=== PATIENT | female | born 1950 | race Caucasian/White ===

== ENCOUNTER 2016-05-10 07:24 | Emergency (ER) | payer MEDICARE, OTHER ==
[2016-05-10] MEDS ORDERED: methylPREDNISolone INJ 125 MG/2 ML VIAL (J2930) As Ordered ONE (07:53)
[2016-05-10] MEDS ORDERED: ASPIRIN 81 MG CHEW TABLET As Ordered ONE (07:53)
[2016-05-10 07:57] LABS: BASO % 0.3 % (0.0-1.0); EOS # 0.1 K/mm3 (0.0-0.50); LARGE UNSTAINED CELL # 0.1 K/mm3 (0.0-0.4); LARGE UNSTAINED CELL % 1.3 % (0.0-4.0); LYMPH # 0.9 K/mm3 (1.5-4.5); LYMPH % 12.2 % (24.0-44.0); MEAN CORPUSCULAR HEMOGLOBIN 31.3 pg (27.0-33.0); MEAN CORPUSCULAR HGB CONC 35.4 g/dl (32.0-36.5); MEAN CORPUSCULAR VOLUME 88.4 fl (80.0-96.0); MONO # 0.4 K/mm3 (0.0-0.8); MONO % 6.1 % (0.0-5.0); NEUTROPHILS # 5.4 K/mm3 (1.8-7.7); NEUTROPHILS % 78.2 % (36.0-66.0); PLATELET COUNT, AUTOMATED 244 k/mm3 (150-450); RED CELL DISTRIBUTION WIDTH 14.8 % (11.5-14.5); WHITE BLOOD COUNT 6.9 K/mm3 (4.0-10.0)
[2016-05-10 08:06] LABS: INR 0.89
[2016-05-10 08:19] LABS: ANION GAP 12 MEQ/L (8-16); BLOOD UREA NITROGEN 4 MG/DL (7-18); CALCIUM LEVEL 8.9 MG/DL (8.8-10.2); CARBON DIOXIDE LEVEL 25 MEQ/L (21-32); CHLORIDE LEVEL 92 MEQ/L (98-107); CREATININE FOR GFR 1.11 MG/DL (0.55-1.02); GLOMERULAR FILTRATION RATE 52.2 (>45); GLUCOSE, FASTING 131 MG/DL (80-110); POTASSIUM SERUM 3.6 MEQ/L (3.5-5.1); SODIUM LEVEL 129 MEQ/L (136-145)
--- NOTE | 2016-05-10 08:26 | REP ---
Clinical: Acute cough . Comparison: 05/08/2011 . Findings: The mediastinum and cardiac silhouette are stable and within normal limits for portable technique. The lung galindo are clear without acute consolidation, effusion, or pneumothorax. Skeletal structures are intact. Impression: Normal portable chest x-ray Signed by Yazan Dennis MD 05/10/2016 08:18 A
--- NOTE | 2016-05-10 10:11 | EDDOCDS ---
Nurse's Notes [facility] Name: Argenis García Age: 65 yrs Sex: Female : 1950 Arrival Date: 05/10/2016 Time: 07:24 Bed 15 Private MD: Diagnosis: Chronic obstructive pulmonary disease with (acute) exacerbation;Hypo-osmolality and hyponatremia Presentation: 05/10 07:29 Presenting complaint: Patient states: chest congestion for 3 weeks. reports productive kr3 cough. congestion worse for last 3 days. Vomiting and diarrhea for 3 weeks. Adult Sepsis Screening: The patient does not have new or worsening altered mentation. Patient's respiratory rate is less than 22. Systolic blood pressure is greater than 100. Patient has a qSOFA score of 0- Negative Sepsis Screen. Suicide/Homicide risk assessment- the patient denies having any suicidal and/or homicidal ideations and does not present with any other emotional, behavioral or mental health complaints. Status: Patient is not a access service representative or dependent. Transition of care: patient was not received from another setting of care. 07:29 Acuity: OMAR Level 3 kr3 07:29 Method Of Arrival: Walkin/Carried/Asstd kr3 Triage Assessment: 07:32 General: Appears in no apparent distress, comfortable, Behavior is appropriate for age, kr3 cooperative. Pain: Location: chest Quality of pain is described as aching, Aggravated by increased activity, repositioning. Neurological: Level of Consciousness is awake, alert. Respiratory: Respiratory effort is even, unlabored, Reports shortness of breath on exertion pain with cough pain with movement pain with respiration. Respiratory: Reports cough that is productive. GI: Reports nausea, vomiting. Derm: Skin is normal. Historical: - Allergies: Codeine Sulfatefeels funny; - Home Meds: 1. lisinopril-hydrochlorothiazide 20-12.5 mg oral tab once daily 2. Seroquel 50 mg Oral tab nightly 3. Xanax 0.5 mg oral tab 3 times per day 4. aspirin 325 mg Oral tab once daily 5. melatonin 10 mg Oral cap nightly 6. Albuterol Nebulizer (Last dose: 05/10/2016 06:30) 7. Albuterol Inhl as needed - PMHx: Panic Attacks; Hypertension; COPD; - PSHx: Hysterectomy; D & C; Lumpectomy- Right; Endoscopy, Upper; - Social history: Smoking status: Patient uses tobacco products, heavy tobacco smoker. No barriers to communication noted, The patient speaks fluent Kinyarwanda, Speaks appropriately for age. - Family history: Not pertinent. - : The pt / caregiver states he / she is not on anticoagulants. Home medication list is obtained from the patient. - Exposure Risk Screening:: None identified. Screenin:53 Screening information is obtained from the patient. Fall risk: No risks identified. ml6 Assistance ADL's: requires no assistance with activities of daily living. Abuse/DV Screen: The patient / caregiver reports he/she is: not in a situation that causes fear, pain or injury. Nutritional screening: No deficits noted. Advance Directives: Currently, there is no health care proxy. home support is adequate. Assessment: 07:52 General: Appears in no apparent distress, Behavior is appropriate for age, cooperative. ml6 Pain: Location: left lateral posterior chest Pain currently is 5 out of 10 on a pain scale. Pain does not radiate. Quality of pain is described as sharp, Pain began 2-3 days ago Is intermittent episodic lasting a few minutes Alleviated by rest. Cardiovascular: Capillary refill < 3 seconds is brisk in bilateral fingers toes Heart tones S1 S2 present Edema is absent. Pulses are all present. Rhythm is regular Chest pain is described as mild, quality is stabbing, is located in left anterior chest wall radiates Does not radiate. 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 GI: Bowel sounds present X 4 quads. Abd is soft and non tender X 4 quads. Reports nausea, vomiting, Denies cramping, diarrhea. 08:08 GI: Abdomen is obese, Bowel sounds present X 4 quads. Abd is soft and non tender. Derm: js13 Skin is pink, warm & dry. 08:42 General: Appears in no apparent distress, comfortable, Behavior is appropriate for age, js13 cooperative. Pain: Location: left lateral posterior chest Pain currently is 3 out of 10 on a pain scale. Pain does not radiate. Quality of pain is described as sharp, Pain began 2-3 days ago Is intermittent. Cardiovascular: Rhythm is regular Chest pain is described as mild. Respiratory: Airway is patent Respiratory effort is even, unlabored, Respiratory pattern is regular, symmetrical, Breath sounds with rhonchi. Derm: Skin is pink, warm & dry. 10:08 Adult Sepsis Screening: The patient does not have new or worsening altered mentation. js13 Patient's respiratory rate is less than 22. Systolic blood pressure is greater than 100. Patient has a qSOFA score of 0- Negative Sepsis Screen. General: Appears in no apparent distress, comfortable, Behavior is appropriate for age, cooperative. Pain: Denies pain. Neurological: Level of Consciousness is awake, alert. Cardiovascular: Chest pain is denied. Respiratory: No deficits noted. Airway is patent Respiratory effort is even, unlabored, Respiratory pattern is regular, symmetrical. Derm: Skin is pink, warm & dry. Vital Signs: 07:34 BP 173 / 82; Pulse 109; Resp 16; Temp 97.9(O); Pulse Ox 96% on R/A; Weight 68.04 kg kr3 (R); Height 5 ft. 1 in. (154.94 cm) (R); 08:26 BP 169 / 80 (auto/); js13 08:26 Pulse 102 MON; Resp 16; Pulse Ox 95% on R/A; js13 08:56 BP 155 / 78 (auto/); js13 08:56 Pulse 94 MON; Resp 16; Pulse Ox 96% on R/A; js13 09:26 BP 172 / 74 (auto/); js13 09:26 Pulse 104 MON; Resp 16; Pulse Ox 94% on R/A; js13 09:56 BP 178 / 72 (auto/); js13 09:56 Pulse 106 MON; Resp 16; Temp 98.0(O); Pulse Ox 96% on R/A; Pain 0/10; js13 07:34 Body Mass Index 28.34 (68.04 kg, 154.94 cm) 3 Vitals: 07:32 Log In Time: May 10, 2016 at 07:26. kr3 ED Course: 07:26 Patient visited by Navya Floyd Reg. hs2 07:26 Patient moved to Waiting hs2 07:30 Triage Initiated kr3 07:36 Myrtle Candelaria,RN is Primary Nurse. kr3 07:36 Patient moved to 15 kr3 07:37 Brenda Warner MD is Attending Physician. fg 07:37 Patient visited by Brenda Warner MD. fg 07:50 [facility] Payment Agreement was scanned into [employer] and attached to record. ks16 07:50 B-Type Natiuretic Peptide Sent. js13 07:50 Basic Metabolic Profile Sent. js13 07:50 CBC with Diff Sent. js13 07:50 Cardiac Injury Profile Sent. js13 07:51 Prothrombin Time Profile\E\INR Sent. js13 07:51 Troponin Sent. js13 07:51 Inserted peripheral IV: 18gauge IV in right antecubital area and blood collected. ml6 Patient tolerated the procedure well. Labs drawn. (by ED staff). Sent per order to lab. Labs/Blood culture drawn. 07:54 The patient / caregiver is instructed regarding the plan of care and ED course. ml6 07:54 satellite project site monitor on. Pulse ox on. NIBP on. ml6 08:08 No procedures done that require assistance. js13 08:09 Patient visited by Myrtle aCndelaria RN. js13 08:44 Patient visited by Myrtle Candelaria RN. js13 08:46 portable chest Returned. EDMS 09:47 Patient visited by Brenda Warner MD. fg 09:56 Discontinued IV lock intact, bleeding controlled, pressure dressing applied, No js13 redness/swelling at site. Administered Medications: 07:57 Drug: Aspirin 324 mg [aspirin 81 mg chewable tablet (4 tabs)] Route: PO; js13 07:57 Drug: Solu-MEDROL 125 mg [Solu-Medrol 500 mg intravenous solution (125 mg)] Route: IVP; js13 Site: right antecubital; 09:05 Drug: NS 0.9% 500 ml [sodium chloride 0.9 % intravenous solution] Route: IV; Rate: js13 bolus; Site: right antecubital; 10:10 Follow up: IV Status: Completed infusion; IV Intake: 500ml js13 Intake: 10:10 IV: 500.00ml; Total: 500.00ml. js13 Order Results: Lab Order: B-Type Natiuretic Peptide; SPEC'M 05/10/16 07:48 Test: BRAIN NATRIURETIC PEPTIDE; Value: 15.6; Range: <100; Units: PG/ML; Status: F Lab Order: Basic Metabolic Profile; SPEC'M 05/10/16 07:48 Test: GLUCOSE, FASTING; Value: 131; Range: 80-110; Abnormal: Above high normal; Units: MG/DL; Status: F Test: BLOOD UREA NITROGEN; Value: 4; Range: 7-18; Abnormal: Below low normal; Units: MG/DL; Status: F Test: CREATININE FOR GFR; Value: 1.11; Range: 0.55-1.02; Abnormal: Above high normal; Units: MG/DL; Status: F Test: GLOMERULAR FILTRATION RATE; Value: 52.2; Range: >45; Status: F Test: SODIUM LEVEL; Value: 129; Range: 136-145; Abnormal: Below low normal; Units: MEQ/L; Status: F Test: POTASSIUM SERUM; Value: 3.6; Range: 3.5-5.1; Units: MEQ/L; Status: F Test: CHLORIDE LEVEL; Value: 92; Range: 98-107; Abnormal: Below low normal; Units: MEQ/L; Status: F Test: CARBON DIOXIDE LEVEL; Value: 25; Range: 21-32; Units: MEQ/L; Status: F Test: ANION GAP; Value: 12; Range: 8-16; Units: MEQ/L; Status: F Test: CALCIUM LEVEL; Value: 8.9; Range: 8.8-10.2; Units: MG/DL; Status: F Test Note: ; Units are mL/min/1.73 m2 Chronic Kidney Disease Staging per NKF: Stage I & II GFR >=60 Normal to Mildly Decreased Stage III GFR 30-59 Moderately Decreased Stage IV GFR 15-29 Severely Decreased Stage V GFR <15 Very Little GFR Left ESRD GFR <15 on SENIOR SYSTEMS SOFTWARE ENGINEER Lab Order: CBC with Diff; SPEC'M 05/10/16 07:48 Test: WHITE BLOOD COUNT; Value: 6.9; Range: 4.0-10.0; Units: K/mm3; Status: F Test: RED BLOOD COUNT; Value: 4.28; Range: 4.00-5.40; Units: M/mm3; Status: F Test: HEMOGLOBIN; Value: 13.4; Range: 12.0-16.0; Units: g/dl; Status: F Test: HEMATOCRIT; Value: 37.9; Range: 36.0-47.0; Units: %; Status: F Test: MEAN CORPUSCULAR VOLUME; Value: 88.4; Range: 80.0-96.0; Units: fl; Status: F Test: MEAN CORPUSCULAR HEMOGLOBIN; Value: 31.3; Range: 27.0-33.0; Units: pg; Status: F Test: MEAN CORPUSCULAR HGB CONC; Value: 35.4; Range: 32.0-36.5; Units: g/dl; Status: F Test: RED CELL DISTRIBUTION WIDTH; Value: 14.8; Range: 11.5-14.5; Abnormal: Above high normal; Units: %; Status: F Test: PLATELET COUNT, AUTOMATED; Value: 244; Range: 150-450; Units: k/mm3; Status: F Test: NEUTROPHILS %; Value: 78.2; Range: 36.0-66.0; Abnormal: Above high normal; Units: %; Status: F Test: LYMPH %; Value: 12.2; Range: 24.0-44.0; Abnormal: Below low normal; Units: %; Status: F Test: MONO %; Value: 6.1; Range: 0.0-5.0; Abnormal: Above high normal; Units: %; Status: F Test: EOS %; Value: 2.0; Range: 0.0-3.0; Units: %; Status: F Test: BASO %; Value: 0.3; Range: 0.0-1.0; Units: %; Status: F Test: LARGE UNSTAINED CELL %; Value: 1.3; Range: 0.0-4.0; Units: %; Status: F Test: NEUTROPHILS #; Value: 5.4; Range: 1.8-7.7; Units: K/mm3; Status: F Test: LYMPH #; Value: 0.9; Range: 1.5-4.5; Abnormal: Below low normal; Units: K/mm3; Status: F Test: MONO #; Value: 0.4; Range: 0.0-0.8; Units: K/mm3; Status: F Test: EOS #; Value: 0.1; Range: 0.0-0.50; Units: K/mm3; Status: F Test: BASO #; Value: 0.0; Range: 0.0-0.2; Units: K/mm3; Status: F Test: LARGE UNSTAINED CELL #; Value: 0.1; Range: 0.0-0.4; Units: K/mm3; Status: F Lab Order: Cardiac Injury Profile; [facility] 05/10/16 07:48 Test: CPK CREATINE PHOSPHOKINASE; Value: 163; Range: 26-192; Units: U/L; Status: F Test: CK-MB VALUE MASS; Value: 2.8; Range: 0.0-3.6; Units: NG/ML; Status: F Test: MB/CK RELATIVE INDEX; Value: 1.71; Range: < OR =4; Status: F Test Note: ; DIAGNOSIS CRITERIA MMB ng/ml Relative Index (RI) NON-AMI < or = 5 N/A CALVERT ZONE > 5 < or = 4 AMI > 5 > 4 Lab Order: Prothrombin Time Profile\E\INR; [facility]05/[facility]16 07:48 Test: PROTHROMBIN TIME; Value: 12.1; Range: 12.3-14.5; Abnormal: Below low normal; Units: SECONDS; Status: F Test: INR; Value: 0.89; Status: F Test Note: ; THERAPUTIC HUMAN INR VALUES INDICATIONS NORMAL RANGES PROPHYLAXIS/TREATMENT OF: VENOUS THROMBOSIS 2.0-3.0 PULMONARY EMBOLISM 2.0-3.0 PREVENTION OF SYSTEMIC EMBOLISM FROM: TISSUE HEART VALVES 2.0-3.0 ACUTE MYOCARDIAL INFARCTION 2.0-3.0 VALVULAR HEART DISEASE 2.0-3.0 ATRIAL FIBRILLATION 2.0-3.0 MECHANICAL VALVES(HIGH RISK) 2.5-3.5 RECURRENT MYOCARDIAL INFARCTION 2.5-3.5 Lab Order: Troponin; 05/10/16 07:48 Test: TROPONIN I; Value: < 0.02; Range: < 0.10; Units: NG/ML; Status: F Test Note: ; Troponin I Reference Interval for [employer] LOCI: 99th Percentile= 0.00-0.045 ng/ml Risk Stratification: <= 0.10 ng/ml Decreased Risk for Adverse Clinical Events. 0.10-1.50 ng/ml Increased Risk for Adverse Clinical Events. Evaluation of additional criterion and/or repeat testing in 2-6 hours is suggested to rule out myocardial damage. >= 1.50 ng/ml Indicative of Myocardial Injury. Radiology Order: portable chest Test: portable chest REASON FOR EXAMINATION: Cough; Clinical: Acute cough .; ; Comparison: 05/08/2011 .; ; Findings:; The mediastinum and cardiac silhouette are stable and within normal limits for; portable technique. The lung galindo are clear without acute consolidation,; effusion, or pneumothorax. Skeletal structures are intact.; ; Impression:; Normal portable chest x-ray; ; ; Signed by; Yazan Dennis MD 05/10/2016 08:18 A; Outcome: 09:49 Discharge ordered by Provider. 09:56 Discharge Assessment: Patient awake, alert and oriented x 3. No cognitive and/or js13 functional deficits noted. Patient verbalized understanding of disposition instructions. patient administered narcotics - no. The following High Risk Discharge criteria are identified: None. Discharged to home ambulatory. Condition: stable. Discharge instructions given to patient, Instructed on discharge instructions, follow up and referral plans. medication usage, Demonstrated understanding of instructions, medications, Pt was receptive of discharge instructions/ teaching. Prescriptions given X 1. No special radiology studies were completed. Property :Personal belongings accompany Pt. 10:10 Patient left the ED. js13 Signatures: Dispatcher [employer] EDMS Cynthia Godoy,RN RN kr3 Brien Ruiz, RN RN ml6 Myrtle CandelariaRN RN js13 Brenda Warner MD MD fg Sorenson, Kimberly, Reg Reg ks16 Navya Floyd, Reg Reg hs2 MTDD
--- NOTE | 2016-05-10 10:11 | EDDOCDS ---
Physician Documentation [facility] Name: Argenis García Age: 65 yrs Sex: Female : 1950 Arrival Date: 05/10/2016 Time: 07:24 Bed 15 Private MD: Disposition: 05/10/16 09:49 Discharged to Home/Self Care. Impression: Chronic obstructive pulmonary disease with (acute) exacerbation, Hypo-osmolality and hyponatremia. - Condition is Stable. - Discharge Instructions: Chronic Obstructive Pulmonary Disease, Hyponatremia. - Prescriptions for Lisinopril 20 mg Oral Tablet - take 1 tablet by ORAL route once daily; 7 tablet. - Medication Reconciliation, Local Pharmacy Hours form. - Follow up: Private Physician; When: Call to arrange an appointment; Reason: Recheck today's complaints. - Problem is new. - Symptoms have improved. - Notes: You have been evaluated for your COPD exacerbation and your low sodium. We will change your antibiotics and would like you to follow up with your PCP next week to check your sodium level. We have removed the HCTZ portion of your HCTZ/Lisinopril medication to see if the medication is causing you to have a lower level of sodium. Theadmitting physician said you did not need to be admitted foryour low sodium level. As discussed your low sodium may be dilutional, meaning the amount of free fluid is diluting your sodium. Please return to the ED if your symptoms do not improve. I hope you feel better soon. Historical: - Allergies: Codeine Sulfatefeels funny; - Home Meds: 1. lisinopril-hydrochlorothiazide 20-12.5 mg oral tab once daily 2. Seroquel 50 mg Oral tab nightly 3. Xanax 0.5 mg oral tab 3 times per day 4. aspirin 325 mg Oral tab once daily 5. melatonin 10 mg Oral cap nightly 6. Albuterol Nebulizer (Last dose: 05/10/2016 06:30) 7. Albuterol Inhl as needed - PMHx: Panic Attacks; Hypertension; COPD; - PSHx: Hysterectomy; D & C; Lumpectomy- Right; Endoscopy, Upper; - Social history: Smoking status: Patient uses tobacco products, heavy tobacco smoker. No barriers to communication noted, The patient speaks fluent Upper Sorbian, Speaks appropriately for age. - Family history: Not pertinent. - : The pt / caregiver states he / she is not on anticoagulants. Home medication list is obtained from the patient. - Exposure Risk Screening:: None identified. Vital Signs: 05/10 07:34 BP 173 / 82; Pulse 109; Resp 16; Temp 97.9(O); Pulse Ox 96% on R/A; Weight 68.04 kg / kr3 150 lbs (R); Height 5 ft. 1 in. (154.94 cm) (R); 08:26 BP 169 / 80 (auto/); js13 08:26 Pulse 102 MON; Resp 16; Pulse Ox 95% on R/A; js13 08:56 BP 155 / 78 (auto/); js13 08:56 Pulse 94 MON; Resp 16; Pulse Ox 96% on R/A; js13 09:26 BP 172 / 74 (auto/); js13 09:26 Pulse 104 MON; Resp 16; Pulse Ox 94% on R/A; js13 09:56 BP 178 / 72 (auto/); js13 09:56 Pulse 106 MON; Resp 16; Temp 98.0(O); Pulse Ox 96% on R/A; Pain 0/10; js13 07:34 Body Mass Index 28.34 (68.04 kg, 154.94 cm) kr3 MDM: 07:39 ECG WITH READING ER PHYS+CARDIAG ordered. EDMS 07:48 Aspirin Chewable Tablet 324 mg PO once ordered. fg 07:48 Convex Grinder Operator/Pulse Ox/q 30 min VS ordered. fg 07:48 IV Saline Lock ordered. fg 07:48 Rhythm Strip to chart ordered. fg 07:48 Undress patient appropriately for examination ordered. fg 07:48 Solu-MEDROL 125 mg IVP once ordered. fg 07:49 B-Type Natiuretic Peptide Ordered. EDMS 07:49 Financial registration complete. [email or web address] 07:49 Basic Metabolic Profile Ordered. EDMS 07:49 CBC with Diff Ordered. EDMS 07:49 Cardiac Injury Profile Ordered. EDMS 07:49 Prothrombin Time Profile\E\INR Ordered. EDMS 07:50 Troponin Ordered. EDMS 07:50 [facility] [place] [facility] Payment Agreement was scanned into [employer] and attached to record. ks16 07:50 portable chest Ordered. EDMS 08:54 NS 0.9% 500 ml IV at bolus once ordered. fg Administered Medications: 07:57 Drug: Aspirin 324 mg [aspirin 81 mg chewable tablet (4 tabs)] Route: PO; 07:57 Drug: Solu-MEDROL 125 mg [Solu-Medrol 500 mg intravenous solution (125 mg)] Route: IVP; js13 Site: right antecubital; 09:05 Drug: NS 0.9% 500 ml [sodium chloride 0.9 % intravenous solution] Route: IV; Rate: js13 bolus; Site: right antecubital; 10:10 Follow up: IV Status: Completed infusion; IV Intake: 500ml 13 Signatures: Dispatcher [employer] EDCynthia PenaRN RN kr3 Myrtle CandelariaRN RN js13 Brenda Warner MD MD fg Sorenson, Kimberly, Reg Reg ks16 The chart was reviewed and I authenticate all verbal orders and agree with the evaluation and treatment provided.Attachments: 07:50 [facility] Payment Agreement [email or web address] MTDD
--- NOTE | 2016-05-10 19:43 | ECGEPIP ---
Stationary ECG Study [facility] - ED Test Date: 2016-05-10 Pat Name: YANIRA KRISHNAN Department: Room: - Gender: F Manufacturing Plant Manager: bhanu : 1950 Requested By: CHEPE Renner Order Number: [id number] Reading MD: Kathy Glover Measurements Intervals Wilber Rate: 110 P: 55 NH: 160 QRS: 22 QRSD: 63 T: 64 QT: 304 QTc: 412 Interpretive Statements SINUS TACHYCARDIA LOW QRS VOLTAGE IN PRECORDIAL LEADS ABNORMAL RHYTHM ECG NSTTW ABNORMALITY Electronically Signed On 05-10-2016 19:43:05 EST by Kathy Glover
--- NOTE | 2016-05-12 11:11 | EDDOCDS ---
Nurse's Notes [facility] Name: Argenis García Age: 65 yrs Sex: Female : 1950 Arrival Date: 05/10/2016 Time: 07:24 Bed 15 Private MD: Diagnosis: Chronic obstructive pulmonary disease with (acute) exacerbation;Hypo-osmolality and hyponatremia Presentation: 05/10 07:29 Presenting complaint: Patient states: chest congestion for 3 weeks. reports productive kr3 cough. congestion worse for last 3 days. Vomiting and diarrhea for 3 weeks. Adult Sepsis Screening: The patient does not have new or worsening altered mentation. Patient's respiratory rate is less than 22. Systolic blood pressure is greater than 100. Patient has a qSOFA score of 0- Negative Sepsis Screen. Suicide/Homicide risk assessment- the patient denies having any suicidal and/or homicidal ideations and does not present with any other emotional, behavioral or mental health complaints. Status: Patient is not a service center assistant or dependent. Transition of care: patient was not received from another setting of care. 07:29 Acuity: OMAR Level 3 kr3 07:29 Method Of Arrival: Walkin/Carried/Asstd kr3 Triage Assessment: 07:32 General: Appears in no apparent distress, comfortable, Behavior is appropriate for age, kr3 cooperative. Pain: Location: chest Quality of pain is described as aching, Aggravated by increased activity, repositioning. Neurological: Level of Consciousness is awake, alert. Respiratory: Respiratory effort is even, unlabored, Reports shortness of breath on exertion pain with cough pain with movement pain with respiration. Respiratory: Reports cough that is productive. GI: Reports nausea, vomiting. Derm: Skin is normal. Historical: - Allergies: Codeine Sulfatefeels funny; - Home Meds: 1. lisinopril-hydrochlorothiazide 20-12.5 mg oral tab once daily 2. Seroquel 50 mg Oral tab nightly 3. Xanax 0.5 mg oral tab 3 times per day 4. aspirin 325 mg Oral tab once daily 5. melatonin 10 mg Oral cap nightly 6. Albuterol Nebulizer (Last dose: 05/10/2016 06:30) 7. Albuterol Inhl as needed - PMHx: Panic Attacks; Hypertension; COPD; - PSHx: Hysterectomy; D & C; Lumpectomy- Right; Endoscopy, Upper; - Social history: Smoking status: Patient uses tobacco products, heavy tobacco smoker. No barriers to communication noted, The patient speaks fluent German, Speaks appropriately for age. - Family history: Not pertinent. - : The pt / caregiver states he / she is not on anticoagulants. Home medication list is obtained from the patient. - Exposure Risk Screening:: None identified. Screenin:53 Screening information is obtained from the patient. Fall risk: No risks identified. ml6 Assistance ADL's: requires no assistance with activities of daily living. Abuse/DV Screen: The patient / caregiver reports he/she is: not in a situation that causes fear, pain or injury. Nutritional screening: No deficits noted. Advance Directives: Currently, there is no health care proxy. home support is adequate. Assessment: 07:52 General: Appears in no apparent distress, Behavior is appropriate for age, cooperative. ml6 Pain: Location: left lateral posterior chest Pain currently is 5 out of 10 on a pain scale. Pain does not radiate. Quality of pain is described as sharp, Pain began 2-3 days ago Is intermittent episodic lasting a few minutes Alleviated by rest. Cardiovascular: Capillary refill < 3 seconds is brisk in bilateral fingers toes Heart tones S1 S2 present Edema is absent. Pulses are all present. Rhythm is regular Chest pain is described as mild, quality is stabbing, is located in left anterior chest wall radiates Does not radiate. 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 GI: Bowel sounds present X 4 quads. Abd is soft and non tender X 4 quads. Reports nausea, vomiting, Denies cramping, diarrhea. 08:08 GI: Abdomen is obese, Bowel sounds present X 4 quads. Abd is soft and non tender. Derm: js13 Skin is pink, warm & dry. 08:42 General: Appears in no apparent distress, comfortable, Behavior is appropriate for age, js13 cooperative. Pain: Location: left lateral posterior chest Pain currently is 3 out of 10 on a pain scale. Pain does not radiate. Quality of pain is described as sharp, Pain began 2-3 days ago Is intermittent. Cardiovascular: Rhythm is regular Chest pain is described as mild. Respiratory: Airway is patent Respiratory effort is even, unlabored, Respiratory pattern is regular, symmetrical, Breath sounds with rhonchi. Derm: Skin is pink, warm & dry. 10:08 Adult Sepsis Screening: The patient does not have new or worsening altered mentation. js13 Patient's respiratory rate is less than 22. Systolic blood pressure is greater than 100. Patient has a qSOFA score of 0- Negative Sepsis Screen. General: Appears in no apparent distress, comfortable, Behavior is appropriate for age, cooperative. Pain: Denies pain. Neurological: Level of Consciousness is awake, alert. Cardiovascular: Chest pain is denied. Respiratory: No deficits noted. Airway is patent Respiratory effort is even, unlabored, Respiratory pattern is regular, symmetrical. Derm: Skin is pink, warm & dry. Vital Signs: 07:34 BP 173 / 82; Pulse 109; Resp 16; Temp 97.9(O); Pulse Ox 96% on R/A; Weight 68.04 kg kr3 (R); Height 5 ft. 1 in. (154.94 cm) (R); 08:26 BP 169 / 80 (auto/); js13 08:26 Pulse 102 MON; Resp 16; Pulse Ox 95% on R/A; js13 08:56 BP 155 / 78 (auto/); js13 08:56 Pulse 94 MON; Resp 16; Pulse Ox 96% on R/A; js13 09:26 BP 172 / 74 (auto/); js13 09:26 Pulse 104 MON; Resp 16; Pulse Ox 94% on R/A; js13 09:56 BP 178 / 72 (auto/); js13 09:56 Pulse 106 MON; Resp 16; Temp 98.0(O); Pulse Ox 96% on R/A; Pain 0/10; js13 07:34 Body Mass Index 28.34 (68.04 kg, 154.94 cm) 3 Vitals: 07:32 Log In Time: May 10, 2016 at 07:26. kr3 ED Course: 07:26 Patient visited by Navya Floyd Reg. hs2 07:26 Patient moved to Waiting hs2 07:30 Triage Initiated kr3 07:36 Myrtle Candelaria,RN is Primary Nurse. kr3 07:36 Patient moved to 15 kr3 07:37 Brenda Warner MD is Attending Physician. fg 07:37 Patient visited by Brenda Warner MD. fg 07:50 [facility] [place] Agreement was scanned into [employer] and attached to record. ks16 07:50 B-Type Natiuretic Peptide Sent. js13 07:50 Basic Metabolic Profile Sent. js13 07:50 CBC with Diff Sent. js13 07:50 Cardiac Injury Profile Sent. js13 07:51 Prothrombin Time Profile\E\INR Sent. js13 07:51 Troponin Sent. js13 07:51 Inserted peripheral IV: 18gauge IV in right antecubital area and blood collected. ml6 Patient tolerated the procedure well. Labs drawn. (by ED staff). Sent per order to lab. Labs/Blood culture drawn. 07:54 The patient / caregiver is instructed regarding the plan of care and ED course. ml6 07:54 watch inspector final movement on. Pulse ox on. NIBP on. ml6 08:08 No procedures done that require assistance. js13 08:09 Patient visited by Myrtle Candelaria,LESTER. js13 08:44 Patient visited by Myrtle Candelaria RN. js13 08:46 portable chest Returned. EDMS 09:47 Patient visited by Brenda Warner MD. fg 09:56 Discontinued IV lock intact, bleeding controlled, pressure dressing applied, No js13 redness/swelling at site. 13:54 T-Sheet-- Draft Copy was scanned into [employer] and attached to record. gb 13:54 ECG/EKG was scanned into [employer] and attached to record. gb 20:06 EKG-ADULT Returned. EDMS Administered Medications: 07:57 Drug: Aspirin 324 mg [aspirin 81 mg chewable tablet (4 tabs)] Route: PO; js13 07:57 Drug: Solu-MEDROL 125 mg [Solu-Medrol 500 mg intravenous solution (125 mg)] Route: IVP; 13 Site: right antecubital; 09:05 Drug: NS 0.9% 500 ml [sodium chloride 0.9 % intravenous solution] Route: IV; Rate: 13 bolus; Site: right antecubital; 10:10 Follow up: IV Status: Completed infusion; IV Intake: 500ml js13 Intake: 10:10 IV: 500.00ml; Total: 500.00ml. js13 Order Results: Lab Order: B-Type Natiuretic Peptide; SPEC'M 05/10/16 07:48 Test: BRAIN NATRIURETIC PEPTIDE; Value: 15.6; Range: <100; Units: PG/ML; Status: F Lab Order: Basic Metabolic Profile; SPEC05/10/16 07:48 Test: GLUCOSE, FASTING; Value: 131; Range: 80-110; Abnormal: Above high normal; Units: MG/DL; Status: F Test: BLOOD UREA NITROGEN; Value: 4; Range: 7-18; Abnormal: Below low normal; Units: MG/DL; Status: F Test: CREATININE FOR GFR; Value: 1.11; Range: 0.55-1.02; Abnormal: Above high normal; Units: MG/DL; Status: F Test: GLOMERULAR FILTRATION RATE; Value: 52.2; Range: >45; Status: F Test: SODIUM LEVEL; Value: 129; Range: 136-145; Abnormal: Below low normal; Units: MEQ/L; Status: F Test: POTASSIUM SERUM; Value: 3.6; Range: 3.5-5.1; Units: MEQ/L; Status: F Test: CHLORIDE LEVEL; Value: 92; Range: 98-107; Abnormal: Below low normal; Units: MEQ/L; Status: F Test: CARBON DIOXIDE LEVEL; Value: 25; Range: 21-32; Units: MEQ/L; Status: F Test: ANION GAP; Value: 12; Range: 8-16; Units: MEQ/L; Status: F Test: CALCIUM LEVEL; Value: 8.9; Range: 8.8-10.2; Units: MG/DL; Status: F Test Note: ; Units are mL/min/1.73 m2 Chronic Kidney Disease Staging per NKF: Stage I & II GFR >=60 Normal to Mildly Decreased Stage III GFR 30-59 Moderately Decreased Stage IV GFR 15-29 Severely Decreased Stage V GFR <15 Very Little GFR Left ESRD GFR <15 on HEPATOLOGY PHYSICIAN Lab Order: CBC with Diff; SPEC05/10/16 07:48 Test: WHITE BLOOD COUNT; Value: 6.9; Range: 4.0-10.0; Units: K/mm3; Status: F Test: RED BLOOD COUNT; Value: 4.28; Range: 4.00-5.40; Units: M/mm3; Status: F Test: HEMOGLOBIN; Value: 13.4; Range: 12.0-16.0; Units: g/dl; Status: F Test: HEMATOCRIT; Value: 37.9; Range: 36.0-47.0; Units: %; Status: F Test: MEAN CORPUSCULAR VOLUME; Value: 88.4; Range: 80.0-96.0; Units: fl; Status: F Test: MEAN CORPUSCULAR HEMOGLOBIN; Value: 31.3; Range: 27.0-33.0; Units: pg; Status: F Test: MEAN CORPUSCULAR HGB CONC; Value: 35.4; Range: 32.0-36.5; Units: g/dl; Status: F Test: RED CELL DISTRIBUTION WIDTH; Value: 14.8; Range: 11.5-14.5; Abnormal: Above high normal; Units: %; Status: F Test: PLATELET COUNT, AUTOMATED; Value: 244; Range: 150-450; Units: k/mm3; Status: F Test: NEUTROPHILS %; Value: 78.2; Range: 36.0-66.0; Abnormal: Above high normal; Units: %; Status: F Test: LYMPH %; Value: 12.2; Range: 24.0-44.0; Abnormal: Below low normal; Units: %; Status: F Test: MONO %; Value: 6.1; Range: 0.0-5.0; Abnormal: Above high normal; Units: %; Status: F Test: EOS %; Value: 2.0; Range: 0.0-3.0; Units: %; Status: F Test: BASO %; Value: 0.3; Range: 0.0-1.0; Units: %; Status: F Test: LARGE UNSTAINED CELL %; Value: 1.3; Range: 0.0-4.0; Units: %; Status: F Test: NEUTROPHILS #; Value: 5.4; Range: 1.8-7.7; Units: K/mm3; Status: F Test: LYMPH #; Value: 0.9; Range: 1.5-4.5; Abnormal: Below low normal; Units: K/mm3; Status: F Test: MONO #; Value: 0.4; Range: 0.0-0.8; Units: K/mm3; Status: F Test: EOS #; Value: 0.1; Range: 0.0-0.50; Units: K/mm3; Status: F Test: BASO #; Value: 0.0; Range: 0.0-0.2; Units: K/mm3; Status: F Test: LARGE UNSTAINED CELL #; Value: 0.1; Range: 0.0-0.4; Units: K/mm3; Status: F Lab Order: Cardiac Injury Profile; [facility] 05/10/16 07:48 Test: CPK CREATINE PHOSPHOKINASE; Value: 163; Range: 26-192; Units: U/L; Status: F Test: CK-MB VALUE MASS; Value: 2.8; Range: 0.0-3.6; Units: NG/ML; Status: F Test: MB/CK RELATIVE INDEX; Value: 1.71; Range: < OR =4; Status: F Test Note: ; DIAGNOSIS CRITERIA MMB ng/ml Relative Index (RI) NON-AMI < or = 5 N/A CALVERT ZONE > 5 < or = 4 AMI > 5 > 4 Lab Order: Prothrombin Time Profile\E\INR; [facility] 05/10/16 07:48 Test: PROTHROMBIN TIME; Value: 12.1; Range: 12.3-14.5; Abnormal: Below low normal; Units: SECONDS; Status: F Test: INR; Value: 0.89; Status: F Test Note: ; THERAPUTIC HUMAN INR VALUES INDICATIONS NORMAL RANGES PROPHYLAXIS/TREATMENT OF: VENOUS THROMBOSIS 2.0-3.0 PULMONARY EMBOLISM 2.0-3.0 PREVENTION OF SYSTEMIC EMBOLISM FROM: TISSUE HEART VALVES 2.0-3.0 ACUTE MYOCARDIAL INFARCTION 2.0-3.0 VALVULAR HEART DISEASE 2.0-3.0 ATRIAL FIBRILLATION 2.0-3.0 MECHANICAL VALVES(HIGH RISK) 2.5-3.5 RECURRENT MYOCARDIAL INFARCTION 2.5-3.5 Lab Order: Troponin; [facility] 05/10/16 07:48 Test: TROPONIN I; Value: < 0.02; Range: < 0.10; Units: NG/ML; Status: F Test Note: ; Troponin I Reference Interval for [employer] LOCI: 99th Percentile= 0.00-0.045 ng/ml Risk Stratification: <= 0.10 ng/ml Decreased Risk for Adverse Clinical Events. 0.10-1.50 ng/ml Increased Risk for Adverse Clinical Events. Evaluation of additional criterion and/or repeat testing in 2-6 hours is suggested to rule out myocardial damage. >= 1.50 ng/ml Indicative of Myocardial Injury. Radiology Order: EKG-ADULT Test: EKG-ADULT REASON FOR EXAMINATION: Chest Pain; Stationary ECG Study; [facility] - ED; ; Test Date: 2016-05-10; Pat Name: ARGENIS GARCÍA Department:; Room: -; Gender: F Applications Coordinator: [email or web address]; : 1950 Requested By: BRENDA Renner; Order Number: [id number] Reading MD: Kathy Glover; Measurements; Intervals [place]; Rate: 110 P: 55; [place]: 160 QRS: 22; QRSD: 63 T: 64; QT: 304; QTc: 412; Interpretive Statements; SINUS TACHYCARDIA; LOW QRS VOLTAGE IN PRECORDIAL LEADS; ABNORMAL RHYTHM ECG; NSTTW ABNORMALITY; Electronically Signed On 05-10-2016 19:43:05 EST by Kathy Glover; Radiology Order: portable chest Test: portable chest REASON FOR EXAMINATION: Cough; Clinical: Acute cough .; ; Comparison: 05/08/2011 .; ; Findings:; The mediastinum and cardiac silhouette are stable and within normal limits for; portable technique. The lung galindo are clear without acute consolidation,; effusion, or pneumothorax. Skeletal structures are intact.; ; Impression:; Normal portable chest x-ray; ; ; Signed by; Yazan Dennis MD 05/10/2016 08:18 A; Outcome: 09:49 Discharge ordered by Provider. fg 09:56 Discharge Assessment: Patient awake, alert and oriented x 3. No cognitive and/or js13 functional deficits noted. Patient verbalized understanding of disposition instructions. patient administered narcotics - no. The following High Risk Discharge criteria are identified: None. Discharged to home ambulatory. Condition: stable. Discharge instructions given to patient, Instructed on discharge instructions, follow up and referral plans. medication usage, Demonstrated understanding of instructions, medications, Pt was receptive of discharge instructions/ teaching. Prescriptions given X 1. No special radiology studies were completed. Property :Personal belongings accompany Pt. 10:10 Patient left the ED. js13 Signatures: Dispatcher [employer] EDLori Christensen, Cynthia LeonRN RN kr3 Brien Ruiz, RN RN ml6 Myrtle Candelaria,RN RN js13 Brenda Warner MD MD fg Sorenson, Kimberly, Reg Reg ks16 Navya Floyd, Reg Reg hs2 Chart Complete MTDD
--- NOTE | 2016-05-12 11:11 | EDDOCDS ---
Physician Documentation [facility] Name: Argenis García Age: 65 yrs Sex: Female : 1950 Arrival Date: 05/10/2016 Time: 07:24 Bed 15 Private MD: Disposition: 05/10/16 09:49 Discharged to Home/Self Care. Impression: Chronic obstructive pulmonary disease with (acute) exacerbation, Hypo-osmolality and hyponatremia. - Condition is Stable. - Discharge Instructions: Chronic Obstructive Pulmonary Disease, Hyponatremia. - Prescriptions for Lisinopril 20 mg Oral Tablet - take 1 tablet by ORAL route once daily; 7 tablet. - Medication Reconciliation, Local Pharmacy Hours form. - Follow up: Private Physician; When: Call to arrange an appointment; Reason: Recheck today's complaints. - Problem is new. - Symptoms have improved. - Notes: You have been evaluated for your COPD exacerbation and your low sodium. We will change your antibiotics and would like you to follow up with your PCP next week to check your sodium level. We have removed the HCTZ portion of your HCTZ/Lisinopril medication to see if the medication is causing you to have a lower level of sodium. Theadmitting physician said you did not need to be admitted foryour low sodium level. As discussed your low sodium may be dilutional, meaning the amount of free fluid is diluting your sodium. Please return to the ED if your symptoms do not improve. I hope you feel better soon. Historical: - Allergies: Codeine Sulfatefeels funny; - Home Meds: 1. lisinopril-hydrochlorothiazide 20-12.5 mg oral tab once daily 2. Seroquel 50 mg Oral tab nightly 3. Xanax 0.5 mg oral tab 3 times per day 4. aspirin 325 mg Oral tab once daily 5. melatonin 10 mg Oral cap nightly 6. Albuterol Nebulizer (Last dose: 05/10/2016 06:30) 7. Albuterol Inhl as needed - PMHx: Panic Attacks; Hypertension; COPD; - PSHx: Hysterectomy; D & C; Lumpectomy- Right; Endoscopy, Upper; - Social history: Smoking status: Patient uses tobacco products, heavy tobacco smoker. No barriers to communication noted, The patient speaks fluent Belarusian, Speaks appropriately for age. - Family history: Not pertinent. - : The pt / caregiver states he / she is not on anticoagulants. Home medication list is obtained from the patient. - Exposure Risk Screening:: None identified. Vital Signs: 05/10 07:34 BP 173 / 82; Pulse 109; Resp 16; Temp 97.9(O); Pulse Ox 96% on R/A; Weight 68.04 kg / kr3 150 lbs (R); Height 5 ft. 1 in. (154.94 cm) (R); 08:26 BP 169 / 80 (auto/); js13 08:26 Pulse 102 MON; Resp 16; Pulse Ox 95% on R/A; js13 08:56 BP 155 / 78 (auto/); js13 08:56 Pulse 94 MON; Resp 16; Pulse Ox 96% on R/A; js13 09:26 BP 172 / 74 (auto/); js13 09:26 Pulse 104 MON; Resp 16; Pulse Ox 94% on R/A; js13 09:56 BP 178 / 72 (auto/); js13 09:56 Pulse 106 MON; Resp 16; Temp 98.0(O); Pulse Ox 96% on R/A; Pain 0/10; js13 07:34 Body Mass Index 28.34 (68.04 kg, 154.94 cm) kr3 MDM: 07:39 ECG WITH READING ER PHYS+CARDIAG ordered. EDMS 07:48 Aspirin Chewable Tablet 324 mg PO once ordered. fg 07:48 Produce Sorter/Pulse Ox/q 30 min VS ordered. fg 07:48 IV Saline Lock ordered. fg 07:48 Rhythm Strip to chart ordered. fg 07:48 Undress patient appropriately for examination ordered. fg 07:48 Solu-MEDROL 125 mg IVP once ordered. fg 07:49 B-Type Natiuretic Peptide Ordered. EDMS 07:49 Financial registration complete. [email or web address] 07:49 Basic Metabolic Profile Ordered. EDMS 07:49 CBC with Diff Ordered. EDMS 07:49 Cardiac Injury Profile Ordered. EDMS 07:49 Prothrombin Time Profile\E\INR Ordered. EDMS 07:50 Troponin Ordered. EDMS 07:50 [facility] [place] [facility] [place] Agreement was scanned into [email or web address] and attached to record. [email or web address] 07:50 portable chest Ordered. EDMS 08:54 NS 0.9% 500 ml IV at bolus once ordered. fg 13:54 T-Sheet-- Draft Copy was scanned into [email or web address] and attached to record. gb 13:54 ECG/EKG was scanned into [email or web address] and attached to record. gb Administered Medications: 07:57 Drug: Aspirin 324 mg [aspirin 81 mg chewable tablet (4 tabs)] Route: PO; js13 07:57 Drug: Solu-MEDROL 125 mg [Solu-Medrol 500 mg intravenous solution (125 mg)] Route: IVP; js13 Site: right antecubital; 09:05 Drug: NS 0.9% 500 ml [sodium chloride 0.9 % intravenous solution] Route: IV; Rate: js13 bolus; Site: right antecubital; 10:10 Follow up: IV Status: Completed infusion; IV Intake: 500ml js13 Signatures: Dispatcher [employer] EDMS Lori Ramirez, Reg Reg gb Cynthia Godoy,RN RN kr3 Myrtle CandelariaRN RN js13 Brenda Warner MD MD fg Sorenson, Kimberly, Reg Reg ks16 The chart was reviewed and I authenticate all verbal orders and agree with the evaluation and treatment provided.Attachments: 07:50 [facility] Payment Agreement [email or web address] 13:54 T-Sheet-- Draft Copy gb 13:54 ECG/EKG gb Chart Complete MTDD
--- NOTE | 2016-05-12 11:11 | EDDOCDS ---
Physician Documentation [facility] Name: Argenis García Age: 65 yrs Sex: Female : 1950 Arrival Date: 05/10/2016 Time: 07:24 Bed 15 Private MD: Disposition: 05/10/16 09:49 Discharged to Home/Self Care. Impression: Chronic obstructive pulmonary disease with (acute) exacerbation, Hypo-osmolality and hyponatremia. - Condition is Stable. - Discharge Instructions: Chronic Obstructive Pulmonary Disease, Hyponatremia. - Prescriptions for Lisinopril 20 mg Oral Tablet - take 1 tablet by ORAL route once daily; 7 tablet. - Medication Reconciliation, Local Pharmacy Hours form. - Follow up: Private Physician; When: Call to arrange an appointment; Reason: Recheck today's complaints. - Problem is new. - Symptoms have improved. - Notes: You have been evaluated for your COPD exacerbation and your low sodium. We will change your antibiotics and would like you to follow up with your PCP next week to check your sodium level. We have removed the HCTZ portion of your HCTZ/Lisinopril medication to see if the medication is causing you to have a lower level of sodium. Theadmitting physician said you did not need to be admitted foryour low sodium level. As discussed your low sodium may be dilutional, meaning the amount of free fluid is diluting your sodium. Please return to the ED if your symptoms do not improve. I hope you feel better soon. Historical: - Allergies: Codeine Sulfatefeels funny; - Home Meds: 1. lisinopril-hydrochlorothiazide 20-12.5 mg oral tab once daily 2. Seroquel 50 mg Oral tab nightly 3. Xanax 0.5 mg oral tab 3 times per day 4. aspirin 325 mg Oral tab once daily 5. melatonin 10 mg Oral cap nightly 6. Albuterol Nebulizer (Last dose: 05/10/2016 06:30) 7. Albuterol Inhl as needed - PMHx: Panic Attacks; Hypertension; COPD; - PSHx: Hysterectomy; D & C; Lumpectomy- Right; Endoscopy, Upper; - Social history: Smoking status: Patient uses tobacco products, heavy tobacco smoker. No barriers to communication noted, The patient speaks fluent Irish, Speaks appropriately for age. - Family history: Not pertinent. - : The pt / caregiver states he / she is not on anticoagulants. Home medication list is obtained from the patient. - Exposure Risk Screening:: None identified. Vital Signs: 05/10 07:34 BP 173 / 82; Pulse 109; Resp 16; Temp 97.9(O); Pulse Ox 96% on R/A; Weight 68.04 kg / kr3 150 lbs (R); Height 5 ft. 1 in. (154.94 cm) (R); 08:26 BP 169 / 80 (auto/); js13 08:26 Pulse 102 MON; Resp 16; Pulse Ox 95% on R/A; js13 08:56 BP 155 / 78 (auto/); js13 08:56 Pulse 94 MON; Resp 16; Pulse Ox 96% on R/A; js13 09:26 BP 172 / 74 (auto/); js13 09:26 Pulse 104 MON; Resp 16; Pulse Ox 94% on R/A; js13 09:56 BP 178 / 72 (auto/); js13 09:56 Pulse 106 MON; Resp 16; Temp 98.0(O); Pulse Ox 96% on R/A; Pain 0/10; js13 07:34 Body Mass Index 28.34 (68.04 kg, 154.94 cm) kr3 MDM: 07:39 ECG WITH READING ER PHYS+CARDIAG ordered. EDMS 07:48 Aspirin Chewable Tablet 324 mg PO once ordered. fg 07:48 Lead Material Handler/Pulse Ox/q 30 min VS ordered. fg 07:48 IV Saline Lock ordered. fg 07:48 Rhythm Strip to chart ordered. fg 07:48 Undress patient appropriately for examination ordered. fg 07:48 Solu-MEDROL 125 mg IVP once ordered. fg 07:49 B-Type Natiuretic Peptide Ordered. EDMS 07:49 Financial registration complete. [email or web address] 07:49 Basic Metabolic Profile Ordered. EDMS 07:49 CBC with Diff Ordered. EDMS 07:49 Cardiac Injury Profile Ordered. EDMS 07:49 Prothrombin Time Profile\E\INR Ordered. EDMS 07:50 Troponin Ordered. EDMS 07:50 [place] [place] Payment Agreement was scanned into [employer] and attached to record. [email or web address] 07:50 portable chest Ordered. EDMS 08:54 NS 0.9% 500 ml IV at bolus once ordered. fg 13:54 T-Sheet-- Draft Copy was scanned into [employer] and attached to record. gb 13:54 ECG/EKG was scanned into [employer] and attached to record. gb Administered Medications: 07:57 Drug: Aspirin 324 mg [aspirin 81 mg chewable tablet (4 tabs)] Route: PO; js13 07:57 Drug: Solu-MEDROL 125 mg [Solu-Medrol 500 mg intravenous solution (125 mg)] Route: IVP; js13 Site: right antecubital; 09:05 Drug: NS 0.9% 500 ml [sodium chloride 0.9 % intravenous solution] Route: IV; Rate: js13 bolus; Site: right antecubital; 10:10 Follow up: IV Status: Completed infusion; IV Intake: 500ml js13 Signatures: Dispatcher [employer] EDMS Lori Ramirez, Reg Reg gb Cynthia Godoy,RN RN kr3 Myrtle CandelariaRN RN js13 Brenda Warner MD MD fg Sorenson, Kimberly, Reg Reg [email or web address] The chart was reviewed and I authenticate all verbal orders and agree with the evaluation and treatment provided.Attachments: 07:50 [facility] Payment Agreement [email or web address] 13:54 T-Sheet-- Draft Copy gb 13:54 ECG/EKG gb Chart Complete MTDD
== END 2016-05-10 10:10 | disposition home or self-care (01) ==
LOC: M ED 07:24
DX: J44.1 Chronic obstructive pulmonary disease with (acute) exacerbation (principal); E87.1 Hypo-osmolality and hyponatremia; I10 Essential (primary) hypertension; F41.0 Panic disorder [episodic paroxysmal anxiety]; Z79.899 Other long term (current) drug therapy; Z79.82 Long term (current) use of aspirin; Z88.2 Allergy status to sulfonamides; Z88.5 Allergy status to narcotic agent; F17.210 Nicotine dependence, cigarettes, uncomplicated
CPT/HCPCS: 36415; 71010; 80048; 82550; 82553; 83880; 84484; 85025; 85610; 93005; 93041; 96361; 96374; 99284; J2930

== ENCOUNTER 2018-11-30 18:36 | Emergency (ER) | payer MEDICARE ==
[~2018-11-30] VITALS: Ht 154.9 cm; Wt 65.9 kg
[2018-11-30] MEDS ORDERED: QUET5TAB (18:44)
[2018-11-30] MEDS ORDERED: ALPR0.5T3 (18:44)
[2018-11-30] MEDS ORDERED: BUSP15TA47 (18:44)
[2018-11-30] MEDS ORDERED: LISI20TA19 (18:44)
[2018-11-30] MEDS ORDERED: SERT-138 (18:44)
[2018-11-30] MEDS ORDERED: ACETAMINOPHEN 325 MG TAB PO ONE (20:30)
[2018-11-30 20:38] VITALS: BP 137/68
--- NOTE | 2018-12-01 07:39 | REP ---
LEFT ANKLE, FOUR VIEWS: Four views of the left ankle are performed. Linear calcific density along the dorsal navicular and dorsal talus may represent avulsions fractures. I can not exclude an avulsion fracture of the lateral malleolus with a tiny calcific density seen adjacent to the lateral malleolus on the AP view. No other acute fracture or dislocation is seen. The ankle mortise is anatomic. There is mild inferior calcaneal spurring. Electronically Signed by Brad Gamboa MD 12/02/2018 07:59 A
== END 2018-11-30 20:53 | disposition home or self-care (01) ==
LOC: M ED 18:36
DX: S82.65XA Nondisplaced fracture of lateral malleolus of left fibula, initial encounter for closed fracture (principal); W01.0XXA Fall on same level from slipping, tripping and stumbling without subsequent striking against object, initial encounter; Y92.099 Unspecified place in other non-institutional residence as the place of occurrence of the external cause; Y93.9 Activity, unspecified; Y99.9 Unspecified external cause status; I10 Essential (primary) hypertension; J44.9 Chronic obstructive pulmonary disease, unspecified; F17.200 Nicotine dependence, unspecified, uncomplicated; Z79.899 Other long term (current) drug therapy; Z88.5 Allergy status to narcotic agent

== ENCOUNTER → 2019-12-14 | Outpatient (CLI) | payer MEDICARE ==
[~2019-12-14] MED LIST: ALPR0.5T3; ASPI-1 PO; BUSP15TA47; LISI20TA35; MELA10TA2 PO; QUET5TAB; SERT-138
[2019-12-14 18:01] LABS: HEMATOCRIT 38.5 % (36.0-47.0); HEMOGLOBIN 12.6 g/dl (12.0-15.5); MEAN CORPUSCULAR HEMOGLOBIN 30.4 pg (27.0-33.0); MEAN CORPUSCULAR HGB CONC 32.7 g/dl (32.0-36.5); MEAN CORPUSCULAR VOLUME 92.8 fl (80.0-96.0); PLATELET COUNT, AUTOMATED 267 10^3/uL (150-450); RED BLOOD COUNT 4.15 10^6/uL (4.00-5.40); WHITE BLOOD COUNT 7.5 10^3/uL (4.0-10.0)
== END ==
LOC: M PLALAB 15:16
PROVIDERS: ATTEND Physician Assistant Medical
DX: R19.5 Other fecal abnormalities (principal)

== ENCOUNTER → 2019-12-18 | Outpatient (CLI) | payer MEDICARE | LOC: M LABSMTC 08:13 | PROVIDERS: ATTEND Anesthesiology | DX: Z01.812 Encounter for preprocedural laboratory examination (principal); Z20.828 Contact with and (suspected) exposure to other viral communicable diseases | CPT/HCPCS: C9803; U0003 ==

== ENCOUNTER 2019-12-23 10:28 | Day surgery (SDC) | payer MEDICARE ==
[~2019-12-23] VITALS: Ht 154.9 cm; Wt 63.5 kg
[~2019-12-23 10:28] MED LIST changes: +LIDOCAINE 2% 100MG/5ML SDV (FOR ANES.) As Ordered ONE; +NS 1,000 ML IV ONE; +propofoL 200 MG/20 ML VIAL As Ordered ONE
--- NOTE | 2019-12-23 12:29 | ROOR ---
Patient Name: Argenis García Procedure Date: 12/23/2019 11:37 AM Date of : 1950 Age: 69 Room: [facility] Gender: Female Note Status: Finalized Procedure: Colonoscopy Indications: Positive Cologuard test Providers: Leonardo Terrell MD Referring MD: JACOBY SCHUMACHER Requesting Provider: Medicines: Monitored Anesthesia Care Complications: No immediate complications. Procedure: Pre-Anesthesia Assessment: - Prior to the procedure, a History and Physical was performed, and patient medications and allergies were reviewed. The patient is competent. The risks and benefits of the procedure and the sedation options and risks were discussed with the patient. All questions were answered and informed consent was obtained. Patient identification and proposed procedure were verified by the physician, the nurse and the anesthesiologist in the procedure room. Mental Status Examination: alert and oriented. Airway Examination: normal oropharyngeal airway and neck mobility. Respiratory Examination: clear to auscultation. CV Examination: normal. Prophylactic Antibiotics: The patient does not require prophylactic antibiotics. Prior Anticoagulants: The patient has taken no previous anticoagulant or antiplatelet agents. ASA Grade Assessment: II - A patient with mild systemic disease. After reviewing the risks and benefits, the patient was deemed in satisfactory condition to undergo the procedure. The anesthesia plan was to use monitored anesthesia care (MAC). Immediately prior to administration of medications, the patient was re-assessed for adequacy to receive sedatives. The heart rate, respiratory rate, oxygen saturations, blood pressure, adequacy of pulmonary ventilation, and response to care were monitored throughout the procedure. The physical status of the patient was re-assessed after the procedure. The Colonoscope was introduced through the anus and advanced to the terminal ileum, with identification of the appendiceal orifice and IC valve. The colonoscopy was performed without difficulty. The patient tolerated the procedure well. The quality of the bowel preparation was good. The terminal ileum, ileocecal valve, appendiceal orifice, and rectum were photographed. Scope insertion time was 3 minutes. Scope withdrawal time was 9 minutes. The total duration of the procedure was 14 minutes. Findings: The perianal and digital rectal examinations were normal. The terminal ileum appeared normal. A 15 mm polyp was found in the transverse colon. The polyp was sessile. The polyp was removed with a hot snare. Resection and retrieval were complete. Verification of patient identification for the specimen was done by the physician and nurse using the patient's name, date and medical record number. Estimated blood loss was minimal. Six sessile polyps were found in the recto-sigmoid colon and descending colon. The polyps were 5 to 10 mm in size. These polyps were removed with a cold snare. Resection and retrieval were complete. Multiple small and large-mouthed diverticula were found in the sigmoid colon. There was no evidence of diverticular bleeding. Non-bleeding external and internal hemorrhoids were found during retroflexion. The hemorrhoids were medium-sized. Impression: - The examined portion of the ileum was normal. - One 15 mm polyp in the transverse colon, removed with a hot snare. Resected and retrieved. - Six 5 to 10 mm polyps at the recto-sigmoid colon and in the descending colon, removed with a cold snare. Resected and retrieved. - Moderate diverticulosis in the sigmoid colon. There was no evidence of diverticular bleeding. - Non-bleeding external and internal hemorrhoids. Recommendation: - Patient has a contact number available for emergencies. The signs and symptoms of potential delayed complications were discussed with the patient. Return to normal activities tomorrow. Written discharge instructions were provided to the patient. - High fiber diet. - Continue present medications. - Await pathology results. - Use fiber, for example Citrucel, Fibercon, Konsyl or Metamucil. - Repeat colonoscopy in 3 - 5 years for surveillance of multiple polyps. - Telephone GI clinic for pathology results in 2 weeks. - Return to primary care physician. Leonardo Terrell MD Leonardo Terrell MD 12/23/2019 12:27:56 PM Electronically signed by Leonardo Terrell MD Number of Addenda: 0 Note Initiated On: 12/23/2019 11:37 AM Estimated Blood Loss: Estimated blood loss was minimal.
[2019-12-23 12:50] VITALS: BP 137/63
== END 2019-12-23 13:00 | disposition home or self-care (01) ==
LOC: M OPP 10:28
PROVIDERS: ATTEND Internal Medicine Gastroenterology
DX: R19.5 Other fecal abnormalities (principal); K63.5 Polyp of colon; K57.30 Diverticulosis of large intestine without perforation or abscess without bleeding; K64.8 Other hemorrhoids; I10 Essential (primary) hypertension; F41.9 Anxiety disorder, unspecified; F32.9 Major depressive disorder, single episode, unspecified; J44.9 Chronic obstructive pulmonary disease, unspecified; F17.210 Nicotine dependence, cigarettes, uncomplicated; Z88.5 Allergy status to narcotic agent; Z91.040 Latex allergy status; Z79.82 Long term (current) use of aspirin; Z82.49 Family history of ischemic heart disease and other diseases of the circulatory system; Z80.0 Family history of malignant neoplasm of digestive organs

== ENCOUNTER → 2020-06-10 | Outpatient (CLI) | payer SELFPAY ==
[~2020-06-10] MED LIST changes: -LIDOCAINE 2% 100MG/5ML SDV (FOR ANES.) As Ordered ONE; -NS 1,000 ML IV ONE; +QUET50TA3; -QUET5TAB; -propofoL 200 MG/20 ML VIAL As Ordered ONE
== END ==
LOC: M LABSMTC 10:43
PROVIDERS: ATTEND Pediatrics
DX: Z20.828 Contact with and (suspected) exposure to other viral communicable diseases (principal); Z11.59 Encounter for screening for other viral diseases

== ENCOUNTER → 2021-04-18 | Outpatient (CLI) | payer MEDICARE ==
[~2021-04-18] MED LIST changes: -QUET50TA3; +QUET50TA4
== END ==
LOC: M WUC 10:32
PROVIDERS: ATTEND Physician Assistant
DX: R06.09 Other forms of dyspnea (principal); R07.9 Chest pain, unspecified

== ENCOUNTER → 2022-01-07 | Outpatient (CLI) | payer MEDICARE | LOC: M WHC 10:56 | PROVIDERS: ATTEND Physician Assistant | DX: C50.411 Malignant neoplasm of upper-outer quadrant of right female breast (principal); D24.2 Benign neoplasm of left breast | CPT/HCPCS: 76642; 77066; G0279 ==

== ENCOUNTER → 2022-06-13 | Outpatient (CLI) | payer MEDICARE ==
[2022-06-13 16:19] LABS: BASO % 0.4 % (0.0-1.0); EOS # 0.2 10^3/uL (0.0-0.5); HEMATOCRIT 38.9 % (36.0-47.0); HEMOGLOBIN 12.5 g/dl (12.0-15.5); LYMPH # 1.3 10^3/uL (1.5-5.0); LYMPH % 26.8 % (24.0-44.0); MEAN CORPUSCULAR HGB CONC 32.1 g/dl (32.0-36.5); MEAN CORPUSCULAR VOLUME 93.3 fl (80.0-96.0); MONO # 0.4 10^3/uL (0.0-0.8); MONO % 8.5 % (2.0-8.0); NEUTROPHILS # 2.8 10^3/uL (1.5-8.5); NEUTROPHILS % 60.1 % (36.0-66.0); PLATELET COUNT, AUTOMATED 167 10^3/uL (150-450); RED BLOOD COUNT 4.17 10^6/uL (4.00-5.40); WHITE BLOOD COUNT 4.7 10^3/uL (4.0-10.0)
[2022-06-13 16:43] LABS: ALBUMIN 3.8 G/DL (3.2-5.2); BILIRUBIN,TOTAL 0.3 MG/DL (0.3-1.2); CHOLESTEROL RISK RATIO 3.7 (<5); CREATININE FOR GFR 1.31 MG/DL (0.55-1.30); GLOMERULAR FILTRATION RATE 42.3 (>39); HDL CHOLESTEROL 42.6 MG/DL (>40); LDL CHOLESTEROL 92.2 MG/DL (<100); NON-HDL-C 115.4 MG/DL; POTASSIUM SERUM 5.5 MMOL/L (3.5-5.1); TOTAL PROTEIN 6.7 G/DL (5.7-8.2)
[2022-06-13 16:45] LABS: THYROID STIMULATING HORMONE 1.491 uIU/ML (0.55-4.78)
== END ==
LOC: M PLALAB 14:41
PROVIDERS: ATTEND Physician Assistant
DX: I10 Essential (primary) hypertension (principal); E78.5 Hyperlipidemia, unspecified

== ENCOUNTER → 2022-07-17 | Outpatient (CLI) | payer MEDICARE | LOC: M WHC 08:24 | PROVIDERS: ATTEND Nurse Practitioner Women's Health | DX: R92.8 Other abnormal and inconclusive findings on diagnostic imaging of breast (principal) | CPT/HCPCS: 77065; G0279 ==

== ENCOUNTER → 2023-01-13 | Outpatient (CLI) | payer MEDICARE, OTHER | LOC: M WHC 10:55 | PROVIDERS: ATTEND Nurse Practitioner Women's Health | DX: R92.8 Other abnormal and inconclusive findings on diagnostic imaging of breast (principal) | CPT/HCPCS: 77066; G0279 ==

== ENCOUNTER → 2024-02-24 | Outpatient (CLI) | payer MEDICARE | LOC: M WHC 09:05 | PROVIDERS: ATTEND Family Medicine | DX: Z12.31 Encounter for screening mammogram for malignant neoplasm of breast (principal); M81.0 Age-related osteoporosis without current pathological fracture; N95.1 Menopausal and female climacteric states; I10 Essential (primary) hypertension; M51.369 Other intervertebral disc degeneration, lumbar region without mention of lumbar back pain or lower extremity pain; M79.605 Pain in left leg; M16.12 Unilateral primary osteoarthritis, left hip; G89.4 Chronic pain syndrome ==

== ENCOUNTER → 2024-02-24 | Outpatient (CLI) | payer MEDICARE | LOC: M PLAIMG 10:53 | PROVIDERS: ATTEND Family Medicine | DX: M51.369 Other intervertebral disc degeneration, lumbar region without mention of lumbar back pain or lower extremity pain (principal); M79.605 Pain in left leg; M16.12 Unilateral primary osteoarthritis, left hip; G89.4 Chronic pain syndrome ==

== ENCOUNTER → 2024-02-24 | Outpatient (CLI) | payer MEDICARE ==
[2024-02-24 13:56] LABS: HEMATOCRIT 42.4 % (36.0-47.0); HEMOGLOBIN 13.8 g/dl (12.0-15.5); MEAN CORPUSCULAR HEMOGLOBIN 29.6 pg (27.0-33.0); MEAN CORPUSCULAR HGB CONC 32.5 g/dl (32.0-36.5); PLATELET COUNT, AUTOMATED 184 10^3/uL (150-450); RED BLOOD COUNT 4.66 10^6/uL (4.00-5.40); WHITE BLOOD COUNT 5.8 10^3/uL (4.0-10.0)
[2024-02-24 14:23] LABS: ALBUMIN 3.4 G/DL (3.2-5.2); BILIRUBIN,TOTAL 0.3 MG/DL (0.3-1.2); CALCIUM LEVEL 9.9 MG/DL (8.3-10.6); CREATININE FOR GFR 1.13 MG/DL (0.55-1.30); POTASSIUM SERUM 3.3 MMOL/L (3.5-5.1); TOTAL PROTEIN 6.1 G/DL (5.7-8.2)
== END ==
LOC: M PLALAB 10:50
PROVIDERS: ATTEND Physician Assistant
DX: I10 Essential (primary) hypertension (principal)